=== PATIENT | male | born 1965 | race African-American/Black ===

== ENCOUNTER 2021-05-11 13:06 | Emergency (ER) | payer BC ==
[~2021-05-11] VITALS: Ht 177.8 cm; Wt 99.0 kg
[2021-05-11] MEDS ORDERED: KETOROLAC 60MG/2ML VIAL IM ONE (13:45)
[2021-05-11 14:36] LABS: CLARITY URINE CLEAR (CLEAR); COLOR URINE YELLOW (YELLOW); KETONES URINE NEGATIVE (NEGATIVE); LEUKOCYTE ESTERASE URINE NEGATIVE (NEGATIVE); NITRITE URINE NEGATIVE (NEGATIVE); OCCULT BLOOD URINE NEGATIVE (NEGATIVE); PH URINE 5.5 (4.5-8.0); PROTEIN URINE NEGATIVE (NEGATIVE); SPECIFIC GRAVITY URINE 1.022 (1.005-1.030)
[2021-05-11] MEDS ORDERED: IBUP-2029 MT (14:47)
[2021-05-11] MEDS ORDERED: CYCL10TA7 MT (14:47)
[2021-05-11 15:08] VITALS: BP 135/80
== END 2021-05-11 15:10 | disposition home or self-care (01) ==
LOC: ER 13:06
DX: M54.9 Dorsalgia, unspecified (principal)
CPT/HCPCS: 81003; 96372; 99283; J1885